=== PATIENT | male | born 1990 | race Caucasian/White ===

== ENCOUNTER 2017-12-27 08:35 | Emergency (ER) | payer OTHER ==
[2017-12-27 08:46] VITALS: BP 137/84
--- NOTE | 2017-12-27 08:48 | UC ---
Throat Pain/Nasal [place] HPI - HPI Summary HPI Summary: Pt presents with sinus pain/pressure/congestion and frontal headache for the last 1.5 weeks. He was seen at [facility] 1 week ago and told his symptoms were likely viral and would go away. He has been taking sudafed and mucinex with minimal relief. Denies fever, chills, cough, SOB, chest pain. - History of Current Complaint Chief Complaint: UCRespiratory Stated Complaint: SINUS PAIN Time Seen by Provider: 12/27/17 08:48 Hx Obtained From: Patient Onset/Duration: Gradual Onset Severity: Severe Pain Intensity: 7 Pain Scale Used: 0-10 Numeric - Allergies/Home Medications Allergies/Adverse Reactions: Allergies Allergy/AdvReac Type Severity Reaction Status Date / Time No Known Allergies Allergy Verified 12/27/17 08:46 Home Medications: Home Medications Lisinopril TAB* [Prinivil TAB 10 MG*] 30 mg PO DAILY 12/27/17 [History Confirmed 12/27/17] PMH/Surg Hx/FS Hx/Imm Hx Previously Healthy: Yes Cardiovascular History: Hypertension - Surgical History Surgical History: None - Family History Known Family History: Positive: Hypertension - Social History Occupation: Employed Full-time Lives: With Family Alcohol Use: None Substance Use Type: None Smoking Status (MU): Never Smoked Tobacco Review of Systems Constitutional: Negative Skin: Negative Eyes: Negative ENT: Nasal Discharge, Sinus Congestion, Sinus Pain/Tenderness Respiratory: Negative Cardiovascular: Negative Gastrointestinal: Negative Musculoskeletal: Negative Neurological: Negative Psychological: Negative All Other Systems Reviewed And Are Negative: Yes Physical Exam - Summary Physical Exam Summary: GENERAL: NAD. WDWN HEENT: NC/AT. Conjunctiva clear without inflammation or discharge. TMs intact , no bulging, erythema, or edema. Nasal mucosa mildly swollen and erythematous with yellow discharge. TTP maxillary and frontal sinus. Posterior oropharynx without exudates, erythema, or tonsillar enlargement. Uvula midline. NECK: Supple without lymphadenopathy CHEST: CTAB. No r/r/w. No accessory muscle use. Breathing comfortably and in no distress. CV: RRR. Without m/r/g. Pulses intact. SKIN: No rash or erythema noted. NEURO: Alert. CN II-XII grossly intact. PSYCH: Age appropriate behavior. Triage Information Reviewed: Yes Vital Signs: Initial Vital Signs Temp 98.6 F 12/27/17 08:43 Pulse 88 12/27/17 08:43 Resp 16 12/27/17 08:43 BP 137/84 12/27/17 08:43 Pulse Ox 99 12/27/17 08:43 Throat Pain/Nasal Course/Dx - Course Course Of Treatment: Sinusitis - Differential Dx/Diagnosis Provider Diagnoses: Sinusitis Discharge - Sign-Out/Discharge Documenting (check all that apply): Discharge - Discharge Plan Condition: Stable Disposition: HOME Prescriptions: Amoxicillin/Clavulanate TAB* [Augmentin TAB 875*] 875 mg PO BID #20 tab Patient Education Materials: Sinusitis (ED) Referrals: Sushma Barclay NP [Primary Care Provider] - Additional Instructions: If you develop a fever, shortness of breath, chest pain, new or worsening symptoms - please call your PCP or go to the ED. - Billing Disposition and Condition Condition: STABLE Disposition: HOME
== END 2017-12-27 09:02 | disposition home or self-care (01) ==
LOC: UCEAST 08:35
DX: J32.9 Chronic sinusitis, unspecified (principal); I10 Essential (primary) hypertension
CPT/HCPCS: 99212; G0463

== ENCOUNTER 2018-05-22 09:10 | Emergency (ER) | payer OTHER ==
[2018-05-22 09:20] VITALS: BP 145/87
--- NOTE | 2018-05-22 09:31 | UC ---
Back Pain HPI - HPI Summary HPI Summary: patient has had low back pain in past. last harry started with pain (no known precipitant). took a flexeril without relief, also tried cold and heat. this am much worse, no incontinence or saddle block anesthesia - History of Current Complaint Chief Complaint: UCBackPain Stated Complaint: BACK PAIN Time Seen by Provider: 05/22/18 09:22 Hx Obtained From: Patient Onset/Duration: Gradual Onset Timing: Constant Severity Initially: Mild Severity Currently: Moderate Pain Intensity: 6 Back Pain: Is Discrete @ - lower mid back Aggravating Factor(s): Movement, Other - sitting Alleviating Factor(s): Nothing Associated Signs And Symptoms: Positive: Negative - Risk Factors Cauda Equina Risk Factors: Negative - Allergies/Home Medications Allergies/Adverse Reactions: Allergies Allergy/AdvReac Type Severity Reaction Status Date / Time No Known Allergies Allergy Verified 05/22/18 09:21 PMH/Surg Hx/FS Hx/Imm Hx Previously Healthy: Yes Cardiovascular History: Hypertension - Surgical History Surgical History: None - Family History Known Family History: Positive: Hypertension - Social History Occupation: Student Lives: With Family Alcohol Use: None Substance Use Type: None Smoking Status (MU): Never Smoked Tobacco Review of Systems Constitutional: Negative Respiratory: Negative Cardiovascular: Negative Neurovascular: Negative Musculoskeletal: Decreased ROM Psychological: Negative Is Patient Immunocompromised?: No All Other Systems Reviewed And Are Negative: Yes Physical Exam Triage Information Reviewed: Yes Appearance: Pain Distress - unable to sit Vital Signs: Initial Vital Signs Temp 98 F 05/22/18 09:18 Pulse 82 05/22/18 09:18 Resp 17 05/22/18 09:18 BP 145/87 05/22/18 09:18 Pulse Ox 100 05/22/18 09:18 Vital Signs Reviewed: Yes Neck exam: Normal Respiratory Exam: Normal Cardiovascular Exam: Normal Musculoskeletal: Positive: ROM Limited @ - limited LS flexion/ext due to pain/ spasm Neurological Exam: Normal Neurological: Positive: Alert Psychological Exam: Normal Skin Exam: Normal Skin: Negative: rashes Back Pain Course/Dx - Differential Dx/Diagnosis Differential Diagnosis/HQI/PQRI: Cauda Equina Syndrome, Strain, Sprain Provider Diagnoses: Low back strain Discharge - Sign-Out/Discharge Documenting (check all that apply): Patient Departure All imaging exams completed and their final reports reviewed: No Studies - Discharge Plan Condition: Stable Disposition: HOME Prescriptions: HYDROcodone/ACETAMIN 5-325 MG* [[place] 5-325 TAB*] 1 tab PO Q6H PRN #8 tab MDD 4 PRN Reason: Pain - Back predniSONE TAB* [Deltasone TAB*] 50 mg PO DAILY #3 tab Patient Education Materials: Low Back Strain (ED) Referrals: Sushma Barclay [employer] [Primary Care Provider] - 2 Days (If no better) Additional Instructions: Apply warm packs start prednisone today continue cycloenzaprine muscle relaxer use hydrocodone sparingly for severe pain - Billing Disposition and Condition Condition: STABLE Disposition: Home
== END 2018-05-22 09:44 | disposition home or self-care (01) ==
LOC: UCEAST 09:10
DX: S39.012A Strain of muscle, fascia and tendon of lower back, initial encounter (principal); X58.XXXA Exposure to other specified factors, initial encounter; Y93.9 Activity, unspecified; Y92.9 Unspecified place or not applicable
CPT/HCPCS: 99212; G0463